=== PATIENT | female | born 1950 | race Asian ===

== ENCOUNTER 2020-01-18 18:27 | Emergency (ER) | payer SELFPAY ==
[~2020-01-18] VITALS: Ht 154.9 cm; Wt 53.4 kg
[2020-01-18] MEDS ORDERED: normal saline 1000ML IV soln IVB ONE (18:50)
--- NOTE | 2020-01-18 18:58 | NUR ---
PT UNABLE TO PROVIDE URINE SAMPLE AT THIS TIME. SHE STATES SHE WENT TO THE BATHROOM PRIOR TO COMING TO THE ER.
[2020-01-18 19:31] LABS: HEMATOCRIT 43.6 % (35.0-45.0); WHITE BLOOD COUNT 4.8 X10'3 (4.5-11.0)
[2020-01-18 19:32] LABS: BASOPHILS % (AUTO) 0.4 % (0-1); EOSINOPHILS # (AUTO) 0.1 X10'3 (0-0.9); EOSINOPHILS % (AUTO) 1.2 % (0-6); HEMOGLOBIN 14.4 g/dl (12.0-16.0); LYMPHOCYTES # (AUTO) 2.1 X10'3 (1.1-4.8); MEAN CORPUSCULAR HEMOGLOBIN 28.5 PG (27.0-31.0); MEAN CORPUSCULAR VOLUME 86.1 FL (78-98); MEAN PLATELET VOLUME 9.2 FL (7.4-10.4); MONOCYTES # (AUTO) 0.6 X10'3 (0-0.9); MONOCYTES % (AUTO) 12.2 % (2-12); NEUTROPHILS # (AUTO) 2.1 X10'3 (1.8-7.7); NEUTROPHILS % (AUTO) 43.2 % (42-75); PLATELET COUNT 137 X10'3 (140-440); RED BLOOD COUNT 5.06 X10'6 (4.20-5.60); RED CELL DISTRIBUTION WIDTH 13.5 % (11.5-14.5)
[2020-01-18 19:57] LABS: ALANINE AMINOTRANSFERASE 9 U/L (12-78); ALBUMIN 3.5 G/DL (3.4-5.0); ALBUMIN/GLOBULIN RATIO 0.7 (1.1-1.5); ALKALINE PHOSPHATASE 100 IU/L (46-116); ANION GAP 8 (8-16); ASPARTATE AMINO TRANSFERASE 12 U/L (10-37); BILIRUBIN,TOTAL 0.7 MG/DL (0.1-1.0); BLOOD UREA NITROGEN 15 MG/DL (7-18); BUN/CREATININE RATIO 11.3 (6.6-38.0); CALCIUM 9.5 MG/DL (8.5-10.1); CHLORIDE 93 MMOL/L (99-107); CREATININE 1.33 MG/DL (0.40-0.90); POTASSIUM 4.1 MMOL/L (3.5-5.1); SODIUM 125 MMOL/L (135-145); TOTAL CARBON DIOXIDE 24.3 MMOL/L (24-32); TOTAL PROTEIN 8.3 G/DL (6.4-8.2); eGFR 39 ML/MIN
[2020-01-18 20:00] LABS: GLUCOSE 638 MG/DL (70-104)
--- NOTE | 2020-01-18 20:06 | NUR ---
SON NOT IN ROOM. ATTEMPTED TO REACH HIM. LEFT VM TO CALL BACK.
[2020-01-18] MEDS ORDERED: insulin regular, human U-100 3ml vial - multi-dose SQ ONE ×2 (20:10→21:25)
[2020-01-18] MEDS ORDERED: insulin regular, human 10 units/0.1 ml syringe IV ONE (20:10)
[2020-01-18 20:13] LABS: CLARITY,URINE CLEAR (Clear); COLOR,URINE YELLOW (Yellow); GLUCOSE, URINE >=1000 mg/dl (Neg); KETONES,URINE NEGATIVE (Neg); LEUKOCYTE ESTERASE ,URINE TRACE (Neg); NITRITES, URINE NEGATIVE (Neg); OCCULT BLOOD,URINE TRACE-INTACT (Neg); PROTEIN,URINE NEGATIVE (Neg); UROBILINOGEN,URINE 0.2 E.U/dL (0.2-1.0)
[2020-01-18 20:18] LABS: RBC,URINE 0-2 /HPF (0-2); UA COLLECTION TYPE CLN CATCH MIDSTREAM
[2020-01-18 20:19] LABS: BACTERIA,URINE FEW /HPF (Neg); SQUAMOUS EPITHELIAL CELL,UR FEW /LPF (FEW)
[2020-01-18] MEDS ORDERED: insulin Lispro (HumaLOG) vial - multi-dose SQ SCH (20:25)
[2020-01-18] MEDS ORDERED: potassium Cl 20 mEq SR tablet PO PRN ×2 (20:25)
[2020-01-18] MEDS ORDERED: dextrose ORAL solution 15 GM/59 ML bottle PO PRN ×2 (20:25)
[2020-01-18] MEDS ORDERED: magnesium 2GM in 50ml NS 50 ML IV PRN (20:25)
[2020-01-18] MEDS ORDERED: glucagon, human recombinant 1mg kit SUBCUT PRN (20:25)
[2020-01-18] MEDS ORDERED: magnesium 4gm in 100ml NS 100 ML IV PRN (20:25)
[2020-01-18] MEDS ORDERED: potassium CL 10mEq/100ml bag 100 ML IV PRN ×2 (20:25)
[2020-01-18] MEDS ORDERED: normal saline 1000ml 1,000 ML IV SCH (20:25)
[2020-01-18] MEDS ORDERED: magnesium Cl slow-release 64mg tablet PO PRN (20:25)
[2020-01-18] MEDS ORDERED: dextrose 50%-water 50ml dispensing syringe IV PRN ×2 (20:25)
[2020-01-18] MEDS ORDERED: MESSAGE TO PHARMACY PO ONE (20:25)
[2020-01-18] MEDS ORDERED: morphine 2 MG/ML inj. syringe IV PRN ×2 (20:25)
[2020-01-18] MEDS ORDERED: acetaminophen 325mg tablet PO PRN (20:25)
[2020-01-18] MEDS ORDERED: ondansetron/PF 4mg/2ml inj IV PRN (20:25)
[2020-01-18] MEDS ORDERED: mag hydrox/Alum hydrox/simeth 30ml oral suspension PO PRN (20:25)
[2020-01-18] MEDS ORDERED: insulin glargine (Lantus) pen - multi-dose SQ SCH (21:00)
[2020-01-18] MEDS ORDERED: LANTUS SQ (21:20)
[2020-01-18 21:59] VITALS: BP 121/74
[2020-01-19] MEDS ORDERED: heparin, porcine 5000 units/ml vial SQ SCH
[2020-01-19] MEDS ORDERED: K and/or MAG REPLACEMENT MC SCH (08:00)
== END 2020-01-18 22:02 | disposition home or self-care (01) ==
LOC: ER 18:28 → ED HOLD 20:25 → UNDOADMIN 20:25 → UNDODISIN 22:00
DX: E11.65 Type 2 diabetes mellitus with hyperglycemia (principal); I10 Essential (primary) hypertension; Z79.4 Long term (current) use of insulin
CPT/HCPCS: 36415; 80053; 81001; 82948; 85025; 87088; 96361; 96372; 96374; 99285; J1815; J7030; G0378